=== PATIENT | female | born 1965 | race African-American/Black ===

== ENCOUNTER 2016-11-17 17:58 | Inpatient (IN) | payer BC ==
[~2016-11-17] VITALS: Ht 154.9 cm; Wt 100.7 kg
[~2016-11-17 17:58] MED LIST: HYDR12.53 PO; MELO-150 PO; OLME1TAB PO; OLME1TAB35 PO; OLME40TA PO
--- NOTE | 2016-11-17 18:09 | PHYS DOC ---
Past Medical History Past Medical History: Hypertension Past Surgical History: Hysterectomy Additional Past Surgical Histo: Spleenectomy Alcohol Use: Occasionally Drug Use: None Adult General Chief Complaint Chief Complaint: CHEST PAIN HPI HPI Patient is a 51 year old -Bel[place]ian female who presents with 2-3 days of nausea vomiting and diarrhea. She states her entire chest wall to her abdomen hurts. She denies any fevers chills or shortness of breath. She states the pain is constant nothing makes it better or worse. She states she can't keep anything down at this point. She has had an umbilical hernia repair several months ago. She denies any blood in her vomit or stools. Review of Systems Review of Systems Constitutional: Denies fever or chills [] Eyes: Denies change in visual acuity, redness, or eye pain [] HENT: Denies nasal congestion or sore throat [] Respiratory: Denies cough or shortness of breath [] Cardiovascular: No additional information not addressed in HPI [] GI: Positive for abdominal pain, nausea, vomiting, and diarrhea, denies any blood in her vomit or stools [] : Denies dysuria or hematuria [] Musculoskeletal: Denies back pain or joint pain [] Integument: Denies rash or skin lesions [] Neurologic: Denies headache, focal weakness or sensory changes [] Endocrine: Denies polyuria or polydipsia [] Current Medications Current Medications Current Medications Medications (Trade) Dose Ordered Sig/[facility] Start Time Stop Time Status Last Admin Dose Admin Morphine Sulfate 4 mg PRN Q15MIN PRN 11/17/16 18:30 11/18/16 18:29 11/17/16 21:47 4 MG Ondansetron HCl 4 mg 4 mg 1X ONCE 11/17/16 18:30 11/17/16 18:31 DC 11/17/16 18:41 4 MG Sodium Chloride (Iv Sodium Chloride 0.9% 1000ml Bag) 1,000 ml @ 1,000 mls/hr 1X ONCE 11/17/16 18:30 11/17/16 19:29 DC 11/17/16 18:37 1,000 MLS/HR Allergies Allergies Allergies Coded Allergies Type Severity Reaction Last Updated Verified Iodinated Contrast Media - Oral and Adverse Reaction Intermediate "IV DYE" 05/28/16 Yes Physical Exam Physical Exam Constitutional: Well developed, well nourished, no acute distress, non-toxic appearance. [] HENT: Normocephalic, atraumatic, bilateral external ears normal, oropharynx moist, no oral exudates, nose normal. [] Eyes: PERRLA, EOMI, conjunctiva normal, no discharge. [] Neck: Normal range of motion, no tenderness, supple, no stridor. [] Cardiovascular:Heart rate regular rhythm, no murmur [] Lungs & Thorax: Bilateral breath sounds clear to auscultation [] Abdomen: Bowel sounds hyperactive, tender to palpation in the right upper quadrant no rebound or guarding, no masses, no pulsatile masses. [] Skin: Warm, dry, no erythema, no rash. [] Back: No tenderness, no CVA tenderness. [] Extremities: No tenderness, no cyanosis, no clubbing, ROM intact, no edema. [] Neurologic: Alert and oriented X 3, normal motor function, normal sensory function, no focal deficits noted. [] Psychologic: Affect normal, judgement normal, mood normal. [] Current Patient Data Vital Signs Vital Signs Date Time Temp Pulse Resp B/P Pulse Ox O2 Delivery O2 Flow Rate FiO2 11/17/16 20:00 83 115/76 Room Air 11/17/16 19:30 95 11/17/16 18:42 20 11/17/16 18:06 98.8 98.8 Lab Values Laboratory Tests Test 11/17/16 17:30 11/17/16 18:08 Lactic Acid Level 2.5mmol/L (0.4-2.0) H White Blood Count 10.1x10^3/uL (4.0-11.0) Red Blood Count 4.57x10^6/uL (3.50-5.40) Hemoglobin 13.4g/dL (12.0-15.5) Hematocrit 40.8% (36.0-47.0) Mean Corpuscular Volume 89fL (79-100) Mean Corpuscular Hemoglobin 29pg (25-35) Mean Corpuscular Hemoglobin Concent 33g/dL (31-37) Red Cell Distribution Width 13.7% (11.5-14.5) Platelet Count 309x10^3/uL (140-400) Neutrophils (%) (Auto) 86% (31-73) H Lymphocytes (%) (Auto) 11% (24-48) L Monocytes (%) (Auto) 3% (0-9) Eosinophils (%) (Auto) 0% (0-3) Basophils (%) (Auto) 0% (0-3) Neutrophils # (Auto) 8.6x10^3uL (1.8-7.7) H Lymphocytes # (Auto) 1.1x10^3/uL (1.0-4.8) Monocytes # (Auto) 0.3x10^3/uL (0.0-1.1) Eosinophils # (Auto) 0.0x10^3/uL (0.0-0.7) Basophils # (Auto) 0.0x10^3/uL (0.0-0.2) Segmented Neutrophils % 60% (35-66) Band Neutrophils % 24% (0-9) H Lymphocytes % 13% (24-48) L Monocytes % 3% (0-10) Platelet Estimate Adequate (ADEQUATE) Prothrombin Time 12.9SEC (11.7-14.0) Prothrombin Time INR 1.0 (0.8-1.1) Sodium Level 137mmol/L (136-145) Potassium Level 3.0mmol/L (3.5-5.1) L Chloride Level 99mmol/L (98-107) Carbon Dioxide Level 27mmol/L (21-32) Anion Gap 11 (6-14) Blood Urea Nitrogen 15mg/dL (7-20) Creatinine 1.6mg/dL (0.6-1.0) H Estimated GFR (Cockcroft-Gault) 40.8 Glucose Level 123mg/dL (70-99) H Calcium Level 10.0mg/dL (8.5-10.1) Magnesium Level 1.3mg/dL (1.8-2.4) L Total Bilirubin 0.6mg/dL (0.2-1.0) Direct Bilirubin 0.2mg/dL (0.0-0.2) Aspartate Amino Transferase (AST) 79U/L (15-37) H Alanine Aminotransferase (ALT) 97U/L (14-59) H Alkaline Phosphatase 90U/L (46-116) Creatine Kinase 116U/L (26-192) Creatine Kinase MB (Mass) < 0.5ng/mL (0.0-3.6) Creatine Kinase MB Relative Index % (0-4) Troponin I Quantitative < 0.017ng/mL (0.000-0.055) HE-Xpf-L-Type Natriuretic Peptide 26pg/mL (0-124) Total Protein 8.5g/dL (6.4-8.2) H Albumin 4.0g/dL (3.4-5.0) Lipase 44U/L (73-393) L Thyroid Stimulating Hormone (TSH) 1.355uIU/mL (0.358-3.74) Serum Test, Qualitative Negative (NEG) Laboratory Tests 11/17/16 18:08 Laboratory Tests 11/17/16 18:08 EKG EKG EKG shows sinus rhythm with rate of [address] or T elevations, T- wave inversions noted in leads aVL, normal axis, QTC 446 ms, as interpreted by me. Radiology/Procedures Radiology/Procedures [facility] [address] [place] [address] IMAGING REPORT Signed PATIENT: MARY MANZANO ACCOUNT: [id number] : 1965 LOCATION: ER AGE: 51 SEX: F EXAM STATUS: REG ER ORD. PHYSICIAN: HERBERT RENE MD REASON: abd pain PROCEDURE: CT ABDOMEN PELVIS WO CONTRAST Examination: CT of the abdomen pelvis without contrast. HISTORY History of nausea, vomiting, abdominal pain. COMPARISON 05/04/2016. TECHNIQUE Axial CT images of the abdomen pelvis were performed without contrast. Coronal sagittal reformats were performed Exposure: One or more of the following dose reduction technique were utilized for this examination: 1. Automated exposure control. 2.Adjustment of MA and /or KV according to patient size. 3. Use of iterative reconstruction technique. Findings : Minimal bibasilar lung atelectasis. No evidence of free air identified in the abdomen to breast the visualized non contrasted liver, demonstrates mild hepatic steatosis. The evaluation of the solid organs is limited lack of the IV contrast. The evaluation of bowel is limited lack of oral contrast. There is nodular appearance of the spleen grossly similar to prior exam could be prior splenectomy changes. The gallbladder is mildly distended. The stomach is mildly distended. The visualized pancreas grossly appears unremarkable. No evidence of intrarenal collecting system calculi identified. Mild fluid distended small bowel loops identified measuring up to 2.5 centimeters in the anterior lower pelvis region. Feces and gas noted in the colon. Few sigmoid colon diverticulosis.. The caliber of the aorta grossly appears unremarkable. The appendix could not be identified. Small amount of fluid identified in the colon. No evidence of lytic bony destructive lesion. Mild degenerative changes thoracolumbar spine . IMPRESSION - Few fluid distended small bowel loops identified in the lower pelvis region, nonspecific probably mild ileus or partial small bowel obstruction. There is small amount of fluid identified in the colon could be secondary to diarrhea. - Mild hepatic steatosis. Electronically signed by: Emil Macdonald (Nov 17, 2016 20:32:37) DICTATED and SIGNED BY: EMIL MACDONALD MD DATE: 11/17/162031 CC: HERBERT RENE MD; ARMANDO LAU MD ~ Impressions: Abdominal pain Possible partial small bowel obstruction Nausea vomiting diarrhea Hypokalemia Course & Med Decision Making Course & Med Decision Making Pertinent Labs and Imaging studies reviewed. (See chart for details) Noncontrast CT scan of her abdomen pelvis shows possible small bowel obstruction versus diarrhea, her pain is better controlled with morphine, she received IV fluids. She is being admitted to the hospitalist with Terri Butcher and consultation to Dr. Rodriguez with surgery. I spoke with Dr. Rodriguez who will be out of town however he will be able to answer phone calls. He did inform me that if the patient's condition changes and needs to go the OR to consult or the other surgeons. I did update Dr. Marie with the above information. The patient's in stable condition at this time be admitted to the hospital. I have written interim orders for IV fluids and pain meds in addition to antibiotics. I have added potassium to her IV fluids for her hypokalemia. Patient's in stable condition at this time being admitted to hospital. Dragon Disclaimer Dragon Disclaimer This electronic medical record was generated, in whole or in part, using a voice recognition dictation system. Departure Departure Impression: Primary Impression: Abdominal pain Disposition: ADMITTED INPATIENT Admitting Physician: Jayden Grace Condition: STABLE Referrals: ARMANDO LAU MD (PCP) HERBERT RENE MD Nov 17, 2016 18:09
[2016-11-17 18:27] LABS: BASO % 0 % (0-3); EOS % 0 % (0-3); HEMATOCRIT 40.8 % (36.0-47.0); HEMOGLOBIN 13.4 g/dL (12.0-15.5); LYMPH # 1.1 x10^3/uL (1.0-4.8); LYMPH % 11 % (24-48); MEAN CORPUSCULAR HEMOGLOBIN 29 pg (25-35); MEAN CORPUSCULAR HGB CONC 33 g/dL (31-37); MEAN CORPUSCULAR VOLUME 89 fL (79-100); MONO % 3 % (0-9); NEUT % 86 % (31-73); PLATELET COUNT 309 x10^3/uL (140-400); RED BLOOD COUNT 4.57 x10^6/uL (3.50-5.40); RED CELL DISTRIBUTION WIDTH 13.7 % (11.5-14.5); WHITE BLOOD COUNT 10.1 x10^3/uL (4.0-11.0)
[2016-11-17] MEDS ORDERED: ONDANSETRON PF 4 MG/2 ML VIAL. IV ONE (18:30)
[2016-11-17] MEDS ORDERED: IV NORMAL SALINE 1000ML BAG 1,000 ML IV ONE (18:30)
[2016-11-17 18:35] LABS: PROTHROMBIN TIME PATIENT 12.9 SEC (11.7-14.0)
[2016-11-17 18:38] LABS: NEG OBC SER NEG; POS OBC SER POS
[2016-11-17] MEDS: MORPHINE SULFATE 4 MG/ML DISP.SYRIN. IV/SQ PRN ×2 (18:42→21:47)
[2016-11-17 18:52] LABS: CREATININE 1.6 mg/dL (0.6-1.0); GFR 40.8
[2016-11-17 18:58] LABS: CKMB MASS < 0.5 ng/mL (0.0-3.6); CREATINE KINASE 116 U/L (26-192); DIRECT BILIRUBIN 0.2 mg/dL (0.0-0.2); MAGNESIUM 1.3 mg/dL (1.8-2.4); TOTAL BILIRUBIN 0.6 mg/dL (0.2-1.0); TOTAL PROTEIN 8.5 g/dL (6.4-8.2)
[2016-11-17 19:11] LABS: PLT ESTIMATE ADEQUATE (ADEQUATE)
--- NOTE | 2016-11-17 20:34 | RAD ---
Examination: CT of the abdomen pelvis without contrast. HISTORY History of nausea, vomiting, abdominal pain. COMPARISON 05/04/2016. TECHNIQUE Axial CT images of the abdomen pelvis were performed without contrast. Coronal sagittal reformats were performed Exposure: One or more of the following dose reduction technique were utilized for this examination: 1. Automated exposure control. 2.Adjustment of MA and /or KV according to patient size. 3. Use of iterative reconstruction technique. Findings : Minimal bibasilar lung atelectasis. No evidence of free air identified in the abdomen to breast the visualized non contrasted liver, demonstrates mild hepatic steatosis. The evaluation of the solid organs is limited lack of the IV contrast. The evaluation of bowel is limited lack of oral contrast. There is nodular appearance of the spleen grossly similar to prior exam could be prior splenectomy changes. The gallbladder is mildly distended. The stomach is mildly distended. The visualized pancreas grossly appears unremarkable. No evidence of intrarenal collecting system calculi identified. Mild fluid distended small bowel loops identified measuring up to 2.5 centimeters in the anterior lower pelvis region. Feces and gas noted in the colon. Few sigmoid colon diverticulosis.. The caliber of the aorta grossly appears unremarkable. The appendix could not be identified. Small amount of fluid identified in the colon. No evidence of lytic bony destructive lesion. Mild degenerative changes thoracolumbar spine . IMPRESSION - Few fluid distended small bowel loops identified in the lower pelvis region, nonspecific probably mild ileus or partial small bowel obstruction. There is small amount of fluid identified in the colon could be secondary to diarrhea. - Mild hepatic steatosis. Electronically signed by: Emil Macdonald (Nov 17, 2016 20:32:37)
--- NOTE | 2016-11-17 21:26 | ACF ---
Admission Forms Criteria INTESTINAL OBSTRUCTION Clinical Indications for Admission to Inpatient Care (Place 'X' for any and all applicable criteria): Admission is indicated for ANY ONE of the following (1)(2)(3)(4)(5): [X]I. Partial bowel obstruction [ ]II. Complete bowel obstruction Extended stay beyond goal length of stay may be needed for(1)(4)(12(: [ ]a) Identified etiology (eg, hernia, volvulus, cancer with obstruction) requiring intervention [ ]b) Gallstone ileus [ ]c) Surgical intervention [ ]d) Acute comorbid illness (eg, electrolyte imbalance, hypovolemia, renal failure) The original [employer] content created by [employer] has been revised. The portions of the content which have been revised are identified through the use of italic text or in bold, and [facility] has neither reviewed nor approved the modified material. All other unmodified content is copyright [employer]. Please see references footnoted in the original [employer] edition 2016 Admission Criteria Met?: Yes DRISS DIAZ Nov 17, 2016 21:26
[2016-11-17] MEDS: CIPROFLOXACIN 400MG PREMIX 200 ML IV SCH (21:47)
[2016-11-17] MEDS ORDERED: POTASSIUM CHLORIDE 30 MEQ in IV 1/2 NORMAL SALINE 1,000 ML IV ONE (22:00)
[2016-11-18] VITALS (9 sets, daily range): BP systolic 90–107; BP diastolic 52–67
[2016-11-18] MEDS: ONDANSETRON PF 4 MG/2 ML VIAL. IV PRN ×2 (01:27→15:25)
[2016-11-18] MEDS: MORPHINE SULFATE 4 MG/ML DISP.SYRIN. IV PRN ×4 (01:27→20:51)
[2016-11-18 06:06] LABS: BASO % 0 % (0-3); EOS % 2 % (0-3); HEMATOCRIT 34.8 % (36.0-47.0); HEMOGLOBIN 11.7 g/dL (12.0-15.5); LYMPH # 1.5 x10^3/uL (1.0-4.8); LYMPH % 19 % (24-48); MEAN CORPUSCULAR HEMOGLOBIN 30 pg (25-35); MEAN CORPUSCULAR HGB CONC 34 g/dL (31-37); MEAN CORPUSCULAR VOLUME 89 fL (79-100); MONO % 11 % (0-9); NEUT % 68 % (31-73); PLATELET COUNT 278 x10^3/uL (140-400); RED BLOOD COUNT 3.92 x10^6/uL (3.50-5.40); RED CELL DISTRIBUTION WIDTH 13.5 % (11.5-14.5); WHITE BLOOD COUNT 7.9 x10^3/uL (4.0-11.0)
[2016-11-18 06:22] LABS: CALCIUM 8.8 mg/dL (8.5-10.1); CREATININE 1.2 mg/dL (0.6-1.0); GFR 56.9
[2016-11-18 06:27] LABS: POTASSIUM 2.8 mmol/L (3.5-5.1)
--- NOTE | 2016-11-18 06:32 | EKG ---
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
[2016-11-18] MEDS: POTASSIUM CHLORIDE 10MEQ 100 ML IV SCH ×4 (06:44→14:58)
--- NOTE | 2016-11-18 07:24 | RAD ---
Exam: AP portable chest. History: Chest pain for 2 days, hypertension. Comparison: None. Findings: The heart and mediastinal structures are within normal limits for size. Lungs are without infiltrate. No pneumothorax or pleural effusion is appreciated. Multiple thoracic levels demonstrate marginal disc osteophytes. Impression: 1. No acute cardiopulmonary process.
[2016-11-18] MEDS: CIPROFLOXACIN 400MG PREMIX 200 ML IV SCH (09:03)
[2016-11-18] MEDS ORDERED: ALBUTEROL SULFATE 2.5 MG/3 ML NEBU. NEB PRN (10:00)
[2016-11-18] MEDS ORDERED: MAGNESIUM SULFATE 2GM 50 ML IV ONE (10:00)
[2016-11-18] MEDS ORDERED: hydrALAZINE 20 MG/ML VIAL. IVP PRN (10:00)
[2016-11-18] MEDS ORDERED: MORPHINE SULFATE 2 MG/ML DISP.SYRIN. IV PRN (10:00)
[2016-11-18] MEDS ORDERED: ONDANSETRON PF 4 MG/2 ML VIAL. IV PRN (10:00)
[2016-11-18] MEDS ORDERED: IV NORMAL SALINE 500ML BAG 500 ML IV ONE (10:00)
--- NOTE | 2016-11-18 11:09 | HP ---
ADMIT DATE: 11/18/2016 CHIEF COMPLAINT: Abdominal pain. HISTORY OF PRESENT ILLNESS: A 51-year-old female patient with prior history of hypertension who presented to the ER with complaints of 1-week history of diarrhea, nausea, and vomiting. She is having several bowel movements every day. Yesterday, her symptoms increased with increased nausea and vomiting and abdominal pain, and also she has some chest pain. She denies any sick contacts, travel history, fever, or recent surgeries. However, she had an umbilical hernia repair and splenectomy which was several months ago. PAST MEDICAL HISTORY: Hypertension. PAST SURGICAL HISTORY: Splenectomy. PERSONAL HISTORY: No smoking, no alcohol, no substance abuse. FAMILY HISTORY: No cancers or GI. ALLERGIES: ____ CONTRAST. REVIEW OF SYSTEMS: CONSTITUTIONAL: No fevers or chills. EYES: No recent vision changes. SKIN: No rash or itching. CARDIOVASCULAR: No chest pain, syncope, palpitations, or edema. RESPIRATORY: No shortness of breath or cough. GASTROINTESTINAL: Positive for abdominal pain, nausea, vomiting, and diarrhea. NEUROLOGICAL: No headache, paralysis. ENDOCRINOLOGIC: No cold or heat intolerance. GENITOURINARY: No burning with urination, no urgency. MUSCULOSKELETAL: Weakness. LYMPHATICS: No enlarged nodes. PSYCHIATRIC: No anxiety or depression. HOME MEDICATIONS: Reviewed. Currently holding blood pressure medications. PHYSICAL EXAMINATION: GENERAL: No apparent distress. HEENT: Normocephalic, atraumatic. Eyes: Eyes: PERRLA. EOMI. NECK: No JVD, no thyromegaly. ABDOMEN: Soft, bilateral right lower quadrant tenderness present. VITAL SIGNS: Temperature 98.5, pulse 78, respirations 18, blood pressure 96/52, and pulse oximetry 99 on room air. LUNGS: Clear to auscultation. HEART: Regular rate and rhythm; S1, S2 present; pulses intact. ABDOMEN: Soft and positive bowel sounds. EXTREMITIES: No cyanosis or edema. NEUROLOGIC: Normal speech and normal tone; alert and oriented. PSYCHIATRIC: Normal affect, normal mood. SKIN: No ulceration. LABORATORY DATA: WBC 10.1, hemoglobin is 13.4, MCV is 89, and platelets 309. Bands 24%. Chemistry: Sodium is 137, potassium 3.0, chloride 99, carbon dioxide 27, anion gap 11, BUN is 15, creatinine 1.6, GFR 40.8, and glucose 123, calcium is 10.8, magnesium is 1.3, direct bilirubin 0.6, CK-MB is less than 0.5, troponin I is less than 0.017, total protein 8.5, lipase 44, TSH is 1.335. Coagulation: PT/INR within normal range. IMAGING STUDIES: 1. CT of the abdomen showed fluid distended small-bowel loops identified in the lower pelvis region, nonspecific, probably mild ileus, or partial small-bowel obstruction. 2. Mild hepatic steatosis. 3. Chest x-ray, no acute cardiopulmonary process seen. ASSESSMENT AND PLAN: 1. Nausea, vomiting, abdominal pain, diarrhea, unclear etiology, possible differentials include infectious process versus small partial bowel obstruction. 2. Hypertension. 3. Hypokalemia. 4. Hypomagnesemia. PLAN: 1. She has been admitted to the hospital for IV hydration and pain control. Currently, the patient is on normal saline at 75 mL per hour. Potassium and magnesium have been ordered for replacement. 2. I will order one-time 500 bolus of normal saline as the patient's blood pressures are low. She is continuing to have some diarrhea. 3. Consult Gastroenterology and Surgery. Dr. Rodriguez has been notified yesterday. 4. Monitor electrolytes closely. 5. Keep the patient n.p.o. Pain control with IV morphine q. 2h. as needed. Prognosis: Guarded. RADHIKA STOCK MD DR: CAMERON/lizette JOB#: [id number] / [id number]
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
[2016-11-18] MEDS: IV NORMAL SALINE 1000ML BAG 1,000 ML IV SCH ×2 (12:02→22:13)
[2016-11-18] MEDS: CIPROFLOXACIN 200MG PREMIX 100 ML IV SCH (20:51)
[2016-11-18] MEDS ORDERED: LOPERAMIDE 2 MG CAPSULE PO PRN (22:00)
[2016-11-18] MEDS ORDERED: LOPERAMIDE 2 MG CAPSULE PO ONE (22:30)
[2016-11-19 03:22] VITALS: BP 98/59
[2016-11-19 04:41] LABS: BASO % 1 % (0-3); EOS % 6 % (0-3); HEMATOCRIT 32.1 % (36.0-47.0); HEMOGLOBIN 10.6 g/dL (12.0-15.5); LYMPH # 2.3 x10^3/uL (1.0-4.8); LYMPH % 47 % (24-48); MEAN CORPUSCULAR HEMOGLOBIN 30 pg (25-35); MEAN CORPUSCULAR HGB CONC 33 g/dL (31-37); MEAN CORPUSCULAR VOLUME 90 fL (79-100); MONO % 13 % (0-9); NEUT % 34 % (31-73); PLATELET COUNT 251 x10^3/uL (140-400); RED BLOOD COUNT 3.56 x10^6/uL (3.50-5.40); RED CELL DISTRIBUTION WIDTH 13.7 % (11.5-14.5); WHITE BLOOD COUNT 4.9 x10^3/uL (4.0-11.0)
[2016-11-19 04:56] LABS: CALCIUM 8.7 mg/dL (8.5-10.1); GFR 70.2; POTASSIUM 3.3 mmol/L (3.5-5.1)
[2016-11-19 07:40] VITALS: BP 90/61
[2016-11-19] MEDS: CIPROFLOXACIN 200MG PREMIX 100 ML IV SCH ×2 (08:54→20:47)
[2016-11-19] MEDS: IV NORMAL SALINE 1000ML BAG 1,000 ML IV SCH (08:54)
[2016-11-19] MEDS: ACETAMINOPHEN 325 MG TABLET. PO PRN (08:57)
--- NOTE | 2016-11-19 09:04 | RAD ---
Portable acute abdomen series, 11/19/2016: History: Abdominal pain, small bowel obstruction Comparison is made to yesterday's exam. A moderate amount of gas is present in large and small bowel in a nonspecific pattern. No free air seen in the abdomen. There is no evidence of organomegaly. Multiple pelvic calcifications are probably phleboliths. There are moderate scattered degenerative changes in the spine. The heart is at the upper limits of normal in size. There is mild tortuosity of the thoracic aorta. The pulmonary vascularity is normal. No pulmonary infiltrates are seen. There is no evidence of pleural fluid. IMPRESSION: No acute abdominal abnormality is detected.
--- NOTE | 2016-11-19 09:33 | PDOC ---
Subjective: Subjective: Less pain, some diarrhea yesterday - none today, no n/v, tolerating full liquids , wants to eat more. Objective: Vital Signs: Vital Signs Date Time Temp Pulse Resp B/P Pulse Ox O2 Delivery O2 Flow Rate FiO2 11/19/16 07:40 98.1 76 16 90/61 100 Room Air 98.1 Labs: Laboratory Tests Test 11/19/16 04:05 White Blood Count 4.9x10^3/uL Red Blood Count 3.56x10^6/uL Hemoglobin 10.6g/dL Hematocrit 32.1% Mean Corpuscular Volume 90fL Mean Corpuscular Hemoglobin 30pg Mean Corpuscular Hemoglobin Concent 33g/dL Red Cell Distribution Width 13.7% Platelet Count 251x10^3/uL Neutrophils (%) (Auto) 34% Lymphocytes (%) (Auto) 47% Monocytes (%) (Auto) 13% Eosinophils (%) (Auto) 6% Basophils (%) (Auto) 1% Neutrophils # (Auto) 1.7x10^3uL Lymphocytes # (Auto) 2.3x10^3/uL Monocytes # (Auto) 0.6x10^3/uL Eosinophils # (Auto) 0.3x10^3/uL Basophils # (Auto) 0.0x10^3/uL Sodium Level 138mmol/L Potassium Level 3.3mmol/L Chloride Level 106mmol/L Carbon Dioxide Level 26mmol/L Anion Gap 6 Blood Urea Nitrogen 9mg/dL Creatinine 1.0mg/dL Estimated GFR (Cockcroft-Gault) 70.2 Glucose Level 108mg/dL Calcium Level 8.7mg/dL Imaging: Acute Abd Series 11/19/16 IMPRESSION: No acute abdominal abnormality is detected. PE: GEN: NAD LUNGS: CTAB anteriorly HEART: RRR ABD: some left-sided tenderness - better, BS+ NEURO/PSYCH: A & O 3 A/P: N/v, abd pain, diarrhea - better -C Diff neg -CT yesterday w/ mild ileus vs pSBO, abd x-ray normal today -tolerating full liquids, wants to advance -no previous colonoscopy, h/o multiple abd surg -hypokalemia better, Cr now WNL, Hgb 10.6 -- ADAT, could change to PO atbx. Needs outpt screening colonoscopy. KRISTY EARLY Nov 19, 2016 09:33
[2016-11-19 10:10] VITALS: BP 113/79
--- NOTE | 2016-11-19 13:23 | PDOC ---
PROGRESS NOTES Chief Complaint Chief Complaint 1. Nausea, vomiting, abdominal pain, diarrhea, unclear etiology, possible differentials include infectious process versus small partial bowel obstruction. 2. Hypertension. 3. Hypokalemia due to above 4. Hypomagnesemia Plan Advance diet, continue to have diarrhea replace electrolytes Continue Cipro and Flagyl C diff negative mild iv hydration supportive care anticipated DC in AM if asymptomatic. Vitals Vitals Vital Signs Date Time Temp Pulse Resp B/P Pulse Ox O2 Delivery O2 Flow Rate FiO2 11/19/16 10:10 97.9 77 16 113/79 97 Room Air 97.9 Physical Exam General: Alert, Oriented X3 Heart: Normal S1, Normal S2 Lungs: Clear, Wheezing Abdomen: Normal bowel sounds Labs LABS Laboratory Tests Test 11/19/16 04:05 White Blood Count 4.9x10^3/uL (4.0-11.0) Red Blood Count 3.56x10^6/uL (3.50-5.40) Hemoglobin 10.6g/dL (12.0-15.5) Hematocrit 32.1% (36.0-47.0) Mean Corpuscular Volume 90fL (79-100) Mean Corpuscular Hemoglobin 30pg (25-35) Mean Corpuscular Hemoglobin Concent 33g/dL (31-37) Red Cell Distribution Width 13.7% (11.5-14.5) Platelet Count 251x10^3/uL (140-400) Neutrophils (%) (Auto) 34% (31-73) Lymphocytes (%) (Auto) 47% (24-48) Monocytes (%) (Auto) 13% (0-9) Eosinophils (%) (Auto) 6% (0-3) Basophils (%) (Auto) 1% (0-3) Neutrophils # (Auto) 1.7x10^3uL (1.8-7.7) Lymphocytes # (Auto) 2.3x10^3/uL (1.0-4.8) Monocytes # (Auto) 0.6x10^3/uL (0.0-1.1) Eosinophils # (Auto) 0.3x10^3/uL (0.0-0.7) Basophils # (Auto) 0.0x10^3/uL (0.0-0.2) Sodium Level 138mmol/L (136-145) Potassium Level 3.3mmol/L (3.5-5.1) Chloride Level 106mmol/L (98-107) Carbon Dioxide Level 26mmol/L (21-32) Anion Gap 6 (6-14) Blood Urea Nitrogen 9mg/dL (7-20) Creatinine 1.0mg/dL (0.6-1.0) Estimated GFR (Cockcroft-Gault) 70.2 Glucose Level 108mg/dL (70-99) Calcium Level 8.7mg/dL (8.5-10.1) Assessment and Plan Assessmemt and Plan Problems Medical Problems: (1) Abdominal pain Status: Acute Problems: Comment Review of Relevant I have reviewed the following items krista (where applicable) has been applied. Labs Laboratory Tests Test 11/17/16 17:30 11/17/16 18:08 11/18/16 05:20 11/18/16 06:30 Lactic Acid Level 2.5mmol/L (0.4-2.0) White Blood Count 10.1x10^3/uL (4.0-11.0) 7.9x10^3/uL (4.0-11.0) Red Blood Count 4.57x10^6/uL (3.50-5.40) 3.92x10^6/uL (3.50-5.40) Hemoglobin 13.4g/dL (12.0-15.5) 11.7g/dL (12.0-15.5) Hematocrit 40.8% (36.0-47.0) 34.8% (36.0-47.0) Mean Corpuscular Volume 89fL (79-100) 89fL (79-100) Mean Corpuscular Hemoglobin 29pg (25-35) 30pg (25-35) Mean Corpuscular Hemoglobin Concent 33g/dL (31-37) 34g/dL (31-37) Red Cell Distribution Width 13.7% (11.5-14.5) 13.5% (11.5-14.5) Platelet Count 309x10^3/uL (140-400) 278x10^3/uL (140-400) Neutrophils (%) (Auto) 86% (31-73) 68% (31-73) Lymphocytes (%) (Auto) 11% (24-48) 19% (24-48) Monocytes (%) (Auto) 3% (0-9) 11% (0-9) Eosinophils (%) (Auto) 0% (0-3) 2% (0-3) Basophils (%) (Auto) 0% (0-3) 0% (0-3) Neutrophils # (Auto) 8.6x10^3uL (1.8-7.7) 5.4x10^3uL (1.8-7.7) Lymphocytes # (Auto) 1.1x10^3/uL (1.0-4.8) 1.5x10^3/uL (1.0-4.8) Monocytes # (Auto) 0.3x10^3/uL (0.0-1.1) 0.8x10^3/uL (0.0-1.1) Eosinophils # (Auto) 0.0x10^3/uL (0.0-0.7) 0.2x10^3/uL (0.0-0.7) Basophils # (Auto) 0.0x10^3/uL (0.0-0.2) 0.0x10^3/uL (0.0-0.2) Segmented Neutrophils % 60% (35-66) Band Neutrophils % 24% (0-9) Lymphocytes % 13% (24-48) Monocytes % 3% (0-10) Platelet Estimate Adequate (ADEQUATE) Prothrombin Time 12.9SEC (11.7-14.0) Prothromb Time International Ratio 1.0 (0.8-1.1) Sodium Level 137mmol/L (136-145) 136mmol/L (136-145) Potassium Level 3.0mmol/L (3.5-5.1) 2.8mmol/L (3.5-5.1) Chloride Level 99mmol/L (98-107) 102mmol/L (98-107) Carbon Dioxide Level 27mmol/L (21-32) 26mmol/L (21-32) Anion Gap 11 (6-14) 8 (6-14) Blood Urea Nitrogen 15mg/dL (7-20) 15mg/dL (7-20) Creatinine 1.6mg/dL (0.6-1.0) 1.2mg/dL (0.6-1.0) Estimated GFR (Cockcroft-Gault) 40.8 56.9 Glucose Level 123mg/dL (70-99) 106mg/dL (70-99) Calcium Level 10.0mg/dL (8.5-10.1) 8.8mg/dL (8.5-10.1) Magnesium Level 1.3mg/dL (1.8-2.4) Total Bilirubin 0.6mg/dL (0.2-1.0) Direct Bilirubin 0.2mg/dL (0.0-0.2) Aspartate Amino Transf (AST/SGOT) 79U/L (15-37) Alanine Aminotransferase (ALT/SGPT) 97U/L (14-59) Alkaline Phosphatase 90U/L (46-116) Creatine Kinase 116U/L (26-192) Creatine Kinase MB (Mass) < 0.5ng/mL (0.0-3.6) Creatine Kinase MB Relative Index % (0-4) Troponin I Quantitative < 0.017ng/mL (0.000-0.055) TG-Wza-H-Type Natriuretic Peptide 26pg/mL (0-124) Total Protein 8.5g/dL (6.4-8.2) Albumin 4.0g/dL (3.4-5.0) Lipase 44U/L (73-393) Thyroid Stimulating Hormone (TSH) 1.355uIU/mL (0.358-3.74) Serum Test, Qualitative Negative (NEG) Clostridium difficile Toxin (PCR) Negative (Negative) Test 11/19/16 04:05 White Blood Count 4.9x10^3/uL (4.0-11.0) Red Blood Count 3.56x10^6/uL (3.50-5.40) Hemoglobin 10.6g/dL (12.0-15.5) Hematocrit 32.1% (36.0-47.0) Mean Corpuscular Volume 90fL (79-100) Mean Corpuscular Hemoglobin 30pg (25-35) Mean Corpuscular Hemoglobin Concent 33g/dL (31-37) Red Cell Distribution Width 13.7% (11.5-14.5) Platelet Count 251x10^3/uL (140-400) Neutrophils (%) (Auto) 34% (31-73) Lymphocytes (%) (Auto) 47% (24-48) Monocytes (%) (Auto) 13% (0-9) Eosinophils (%) (Auto) 6% (0-3) Basophils (%) (Auto) 1% (0-3) Neutrophils # (Auto) 1.7x10^3uL (1.8-7.7) Lymphocytes # (Auto) 2.3x10^3/uL (1.0-4.8) Monocytes # (Auto) 0.6x10^3/uL (0.0-1.1) Eosinophils # (Auto) 0.3x10^3/uL (0.0-0.7) Basophils # (Auto) 0.0x10^3/uL (0.0-0.2) Sodium Level 138mmol/L (136-145) Potassium Level 3.3mmol/L (3.5-5.1) Chloride Level 106mmol/L (98-107) Carbon Dioxide Level 26mmol/L (21-32) Anion Gap 6 (6-14) Blood Urea Nitrogen 9mg/dL (7-20) Creatinine 1.0mg/dL (0.6-1.0) Estimated GFR (Cockcroft-Gault) 70.2 Glucose Level 108mg/dL (70-99) Calcium Level 8.7mg/dL (8.5-10.1) Laboratory Tests Test 11/19/16 04:05 White Blood Count 4.9x10^3/uL (4.0-11.0) Red Blood Count 3.56x10^6/uL (3.50-5.40) Hemoglobin 10.6g/dL (12.0-15.5) Hematocrit 32.1% (36.0-47.0) Mean Corpuscular Volume 90fL (79-100) Mean Corpuscular Hemoglobin 30pg (25-35) Mean Corpuscular Hemoglobin Concent 33g/dL (31-37) Red Cell Distribution Width 13.7% (11.5-14.5) Platelet Count 251x10^3/uL (140-400) Neutrophils (%) (Auto) 34% (31-73) Lymphocytes (%) (Auto) 47% (24-48) Monocytes (%) (Auto) 13% (0-9) Eosinophils (%) (Auto) 6% (0-3) Basophils (%) (Auto) 1% (0-3) Neutrophils # (Auto) 1.7x10^3uL (1.8-7.7) Lymphocytes # (Auto) 2.3x10^3/uL (1.0-4.8) Monocytes # (Auto) 0.6x10^3/uL (0.0-1.1) Eosinophils # (Auto) 0.3x10^3/uL (0.0-0.7) Basophils # (Auto) 0.0x10^3/uL (0.0-0.2) Sodium Level 138mmol/L (136-145) Potassium Level 3.3mmol/L (3.5-5.1) Chloride Level 106mmol/L (98-107) Carbon Dioxide Level 26mmol/L (21-32) Anion Gap 6 (6-14) Blood Urea Nitrogen 9mg/dL (7-20) Creatinine 1.0mg/dL (0.6-1.0) Estimated GFR (Cockcroft-Gault) 70.2 Glucose Level 108mg/dL (70-99) Calcium Level 8.7mg/dL (8.5-10.1) Medications Current Medications Morphine Sulfate 4 mg PRN Q15MIN PRN IV/SQ PAIN GREATER THAN 3/10 Last administered on 11/17/16 21:47; Start 11/17/16 at 18:30; Stop 11/18/16 at 14:53 ; Status DC Ondansetron HCl 4 mg 4 mg 1X ONCE IV Last administered on 11/17/16 18:41; Start 11/17/16 at 18:30; Stop 11/17/16 at 18:31; Status DC Sodium Chloride (Iv Sodium Chloride 0.9% 1000ml Bag) 1,000 ml @ 1,000 mls/hr 1X ONCE IV Last administered on 11/17/16 18:37; Start 11/17/16 at 18:30; Stop 11/17/16 at 19:29; Status DC Ondansetron HCl 4 mg 4 mg PRN Q8HRS PRN IV NAUSEA/VOMITING Last administered on 11/18/16 15:25; Start 11/17/16 at 21:30; Stop 11/18/16 at 21:29; Status DC Potassium Chloride/Sodium Chloride (Iv Sodium Chloride 0.45%) 1,015 ml @ 75 mls /hr 1X ONCE IV Last administered on 11/17/16 21:47; Start 11/17/16 at 22:00; Stop 11/18/16 at 11:31; Status DC Morphine Sulfate 4 mg 4 mg PRN Q3HRS PRN IV SEVERE PAIN Last administered on 20:51; Start 11/17/16 at 21:30 Ciprofloxacin Lactate 200 ml @ 200 mls/hr Q12HR IV Last administered on 09:03; Start 11/17/16 at 21:30; Stop 11/18/16 at 09:55; Status DC Metronidazole 100 ml @ 100 mls/hr Q8HRS IV Last administered on 11/18/16 06: 42; Start 11/17/16 at 22:00; Stop 11/18/16 at 09:55; Status DC Potassium Chloride 100 ml @ 100 mls/hr Q1H IV Last administered on 11/18/16 14:58; Start 11/18/16 at 07:00; Stop 11/18/16 at 10:59; Status DC Sodium Chloride (Iv Sodium Chloride 0.9% 1000ml Bag) 1,000 ml @ 75 mls/hr [id number] IV Last administered on 11/19/16 08:54; Start 11/18/16 at 10:00 Morphine Sulfate 2 mg 2 mg PRN Q2HR PRN IV PAIN Last administered on 11/19/16 05:43; Start 11/18/16 at 10:00 Magnesium Sulfate/ Dextrose 50 ml @ 25 mls/hr 1X ONCE IV Last administered on 11/18/16 17:40; Start 11/18/16 at 10:00; Stop 11/18/16 at 11:59; Status DC Metronidazole 100 ml @ 100 mls/hr Q8HRS IV Last administered on 11/19/16 05: 44; Start 11/18/16 at 14:00 Ciprofloxacin Lactate (Cipro 200mg Premix) 100 ml @ 100 mls/hr Q12HR IV Last administered on 11/19/16 08:54; Start 11/18/16 at 21:00 Acetaminophen (Tylenol) 325 mg PRN Q6HRS PRN PO MILD PAIN / TEMP Last administered on 11/19/16 08:57; Start 11/18/16 at 10:00 Hydralazine HCl (Apresoline) 10 mg PRN Q4HRS PRN IVP ELEVATED BP, SEE COMMENTS ; Start 11/18/16 at 10:00 Ondansetron HCl (Zofran) 4 mg PRN Q8HRS PRN IV NAUSEA/VOMITING Last administered on 11/19/16 05:44; Start 11/18/16 at 10:00 Albuterol Sulfate 2.5 mg 2.5 mg PRN Q4HRS PRN NEB SHORTNESS OF BREATH; Start at 10:00 Sodium Chloride (Iv Sodium Chloride 0.9% 500ml Bag) 500 ml @ 500 mls/hr 1X ONCE IV Last administered on 11/18/16 10:00; Start 11/18/16 at 10:00; Stop at 10:59; Status DC Loperamide HCl (Imodium) 4 mg 1X ONCE PO Last administered on 11/18/16 22:12 ; Start 11/18/16 at 22:30; Stop 11/18/16 at 22:31; Status DC Loperamide HCl (Imodium) 2 mg PRN Q2HR PRN PO DIARRHEA; Start 11/18/16 at 22:00 Active Scripts Active Reported Meloxicam 15 Mg Tablet 1 Tab PO DAILY Tribenzor 40-10-25 Mg Tablet (Olmesartan/Amlodipin/Hcthiazid) 1 Each Tablet 1 Tab PO DAILY Hydrochlorothiazide Capsule (Hydrochlorothiazide) 12.5 Mg Capsule 12.5 Mg PO DAILY Vitals/I & O Vital Sign - Last 24 Hours 11/18/16 11/18/16 11/18/16 11/18/16 15:18 15:30 15:56 17:43 Temp 97.7 97.9 97.7 97.9 Pulse 75 69 Resp 18 15 B/P 107/67 96/61 Pulse Ox 100 96 97 97 O2 Delivery Room Air Room Air 11/18/16 11/18/16 11/19/16 11/19/16 19:42 23:17 03:22 07:40 Temp 98.8 98.1 98.1 98.1 98.8 98.1 98.1 98.1 Pulse 75 74 77 76 Resp 20 20 16 16 B/P 97/62 90/53 98/59 90/61 Pulse Ox 98 98 96 100 O2 Delivery Room Air Room Air Room Air Room Air 11/19/16 10:10 Temp 97.9 97.9 Pulse 77 Resp 16 B/P 113/79 Pulse Ox 97 O2 Delivery Room Air Intake and Output 11/18/16 11/18/16 11/19/16 15:00 23:00 07:00 Intake Total 280 ml 1250 ml 510 ml Balance 280 ml 1250 ml 510 ml RADHIKA STOCK MD Nov 19, 2016 13:23
[2016-11-19] MEDS ORDERED: POTASSIUM CHLORIDE 20 MEQ TABLET.ER. PO ONE (13:30)
[2016-11-19 14:49] VITALS: BP 112/72
[2016-11-19 19:50] VITALS: BP 104/66
[2016-11-20] MEDS: IV NORMAL SALINE 1000ML BAG 1,000 ML IV SCH (02:00)
[2016-11-20 03:22] VITALS: BP 109/71
[2016-11-20 05:23] LABS: WHITE BLOOD COUNT 5.9 x10^3/uL (4.0-11.0)
[2016-11-20 05:24] LABS: BASO # 0.1 x10^3/uL (0.0-0.2); BASO % 1 % (0-3); EOS % 5 % (0-3); HEMATOCRIT 31.7 % (36.0-47.0); HEMOGLOBIN 10.4 g/dL (12.0-15.5); LYMPH # 3.2 x10^3/uL (1.0-4.8); LYMPH % 53 % (24-48); MEAN CORPUSCULAR HEMOGLOBIN 30 pg (25-35); MEAN CORPUSCULAR HGB CONC 33 g/dL (31-37); MEAN CORPUSCULAR VOLUME 90 fL (79-100); MONO % 11 % (0-9); NEUT % 29 % (31-73); PLATELET COUNT 257 x10^3/uL (140-400); RED BLOOD COUNT 3.51 x10^6/uL (3.50-5.40); RED CELL DISTRIBUTION WIDTH 13.9 % (11.5-14.5)
[2016-11-20] MEDS: metroNIDAZOLE 500 MG TABLET PO SCH ×2 (05:41→14:03)
[2016-11-20] MEDS: ACETAMINOPHEN 325 MG TABLET. PO PRN ×2 (05:41→14:03)
[2016-11-20 06:17] LABS: CALCIUM 8.8 mg/dL (8.5-10.1); CREATININE 0.9 mg/dL (0.6-1.0); GFR 79.3; POTASSIUM 3.7 mmol/L (3.5-5.1)
[2016-11-20 07:00] VITALS: BP 126/75
[2016-11-20] MEDS ORDERED: CIPROFLOXACIN HCL 250 MG TABLET. PO SCH (09:00)
[2016-11-20 09:39] VITALS: BP 137/77
[2016-11-20 11:08] VITALS: BP 140/74
--- NOTE | 2016-11-25 19:28 | DS ---
DATE OF DISCHARGE: 11/20/2016 DISCHARGE DIAGNOSES: 1. Nausea, vomiting, abdominal pain, suspected infectious process. Infectious gastroenteritis, resolved. 2. Hypertension, stable. 3. Hypokalemia due to diarrhea, resolved. 4. Hypomagnesemia due to diarrhea, resolved. BRIEF HOSPITAL COURSE: A 51-year-old female patient admitted to the hospital for nausea, vomiting, abdominal pain, and diarrhea. She was started on broad-spectrum antibiotics such as ciprofloxacin, Flagyl, and with IV hydration. Electrolytes have been replaced. With continual support, patient's symptoms improved. At the time of discharge, she deemed clinically stable, able to tolerate diet very well and diarrhea symptoms and abdominal pain resolved. The patient has been sent home in stable condition with scripts. She is advised to follow up with primary care doctor in a couple of days after completion of antibiotics. Her C. diff PCR has been negative. DISCHARGE EXAMINATION: GENERAL: Alert, oriented x 3. HEART: S1, S2 present. LUNGS: Anterior chest is clear. ABDOMEN: Soft, nontender, no organomegaly. EXTREMITIES: No edema. DISCHARGE DISPOSITION: Home. DISCHARGE CONDITION: Stable. DISCHARGE MEDICATIONS: New scripts provided. Please see my MRAD. Total time spent for discharge is 31 minutes for patient education, counseling, and coordination of care. RADHIKA STOCK MD DR: CAMERON/lizette JOB#: [id number] / [id number] CONSTANCED
== END 2016-11-20 15:04 | disposition home or self-care (01) | DRG 391 ==
LOC: ER 17:58 → ED HOLD 20:20 → OBSVTOIN 20:20 → 6 SOUTH 11-18 00:28
PROVIDERS: ADMIT Internal Medicine; ATTEND Internal Medicine
DX: A09 Infectious gastroenteritis and colitis, unspecified (principal); N17.0 Acute kidney failure with tubular necrosis; K56.69 Other intestinal obstruction; R10.9 Unspecified abdominal pain; I10 Essential (primary) hypertension; E87.6 Hypokalemia; E83.42 Hypomagnesemia; K76.0 Fatty (change of) liver, not elsewhere classified; K52.9 Noninfective gastroenteritis and colitis, unspecified; Z90.710 Acquired absence of both cervix and uterus; Z90.81 Acquired absence of spleen
CPT/HCPCS: 36415; 71010; 74022; 74176; 80048; 80076; 82553; 83605; 83690; 83735; 83880; 84443; 84484; 84703; 85007; 85027; 85610; 87324; 93005; 94250; 94760; 96361; 96374; 96375; 96376; J0744; J2270; J2405; J3480; J3490; J7030; J7040; J7060; 99285-25

== ENCOUNTER → 2016-12-08 | Outpatient (CLI) | payer BC ==
[2016-11-20 11:08] VITALS: BP 140/74
[2016-12-08 17:06] LABS: ALBUMIN 3.9 g/dL (3.4-5.0); CALCIUM 10.8 mg/dL (8.5-10.1); GFR 70.2; POTASSIUM 3.5 mmol/L (3.5-5.1); TOTAL BILIRUBIN 0.3 mg/dL (0.2-1.0); TOTAL PROTEIN 7.8 g/dL (6.4-8.2)
== END | disposition home or self-care (01) ==
LOC: LAB 16:13
PROVIDERS: ATTEND Family Medicine
DX: R19.7 Diarrhea, unspecified (principal); R79.89 Other specified abnormal findings of blood chemistry
CPT/HCPCS: 36415; 80053